=== PATIENT | female | born 1990 | race Two or more races ===

== ENCOUNTER → 2018-09-17 | Outpatient (CLI) | payer BC ==
--- NOTE | 2018-09-17 14:58 | KCIC ---
Left breast ultrasound: Reason for examination: Left breast lump. Ultrasound examination was performed in the area of clinical concern and at the left axilla. In the 3:30 position 3 cm from the nipple, there is a solid lobulated hypoechoic heterogeneous nodule which shows internal vascularity. This measures 3.1 x 2.7 cm in greatest dimension. This may represent a fibroadenoma however phyllodes tumor or malignancy cannot be excluded. Further evaluation with ultrasound-guided biopsy is recommended. No abnormal appearing lymph nodes are seen in the axilla. IMPRESSION: 3.1 cm heterogeneous nodule with vascular flow at the 3:30 position of the left breast. Recommend ultrasound-guided biopsy. BI-RADS Category 4: Suspicious. These findings have been discussed with the patient and Dr. Jara's biomedical specialist, Pilar, was notified about these findings at 1452 on 09/17/2018. "Our facility is accredited by the [employer] Mammography [employer]." This patient's information has been entered into a reminder system for the patient to be notified with the results of her examination and a target date for the next mammogram. Electronically signed by: Ester Blackwood MD (09/17/2018 2:55 PM) [id number]
== END | disposition home or self-care (01) ==
LOC: KCIC US 08:46
PROVIDERS: ATTEND Family Medicine
DX: N63.23 Unspecified lump in the left breast, lower outer quadrant (principal)
CPT/HCPCS: 76641